=== PATIENT | male | born 1960 | race Caucasian/White ===

== ENCOUNTER → 2016-07-15 | Outpatient (CLI) | payer OTHER ==
[~2016-07-15] VITALS: Ht 177.8 cm; Wt 104.3 kg
[~2016-07-15] MED LIST: AMBIEN; AMBIEN 5 MG TABL5 M1 PO; AMLODIPINE BESYL5 MG PO; APAP650 PO; ASPIRIN325 PO; ATIVAN0.5 MG PO; BACTRIM DS TAB1 EACH PO; BP MED; CELEBREX 200 M200 MG PO; FIBER0.52 G1 PO; FLAGYL500 MG PO; FLEXERIL PO; LEXAPRO 10 MG T10 M2 PO; MOBIC15 MG PO; MULTIVITAMINS PO; NEXIUM PO; OMEPRAZOLE40 MG PO; PERCOCET 10-321 EACH PO; PREDNISONE 20 M20 MG PO; RAPAFLO8 MG PO; TIZANIDINE HCL4 MG PO; VITAMIN D-32000 UNIT PO; VITAMIN D35000 UNI1 PO; VITAMIN D400 UNI1; WELLBUTRIN 100100 M1 PO; ZOLOFT100 MG PO
--- NOTE | ~2016-07-15 | HPC ---
[facility] [place] [address] PAIN MANAGEMENT CONSULTATION Name: NANCY GOMEZ [id number] Admission: 07/15/16 Attend Phys: Gregorio Jackson DO Discharge: Date of : 64 Report #: [id number] THIS REPORT FOR: //name// CC: Jc Jackson HISTORY OF PRESENT ILLNESS: The patient is a pleasant 56-year-old gentleman, prior seen back in 2011 for symptomatic lumbar radiculopathy. He was seen 10/01/2015, given a single epidural injection at that time with 80-90% improvement of baseline pain. Pain has gradually begun to recur back, right buttock and leg. The patient notes pain is in both legs intermittently. It is sharp, tenderness with numbness and shooting paresthesia, currently rates the pain as 3-4/10, but notes it does significantly interfere with function as he is starting to walk and move. PHYSICAL EXAMINATION: GENERAL: Shows a 56-year-old gentleman, BMI is 33 kilograms per meter squared. VITAL SIGNS: Blood pressure is elevated today at 167/101, pulse 92, respirations of 16. MUSCULOSKELETAL: Rises from the chair using the armrest. Gait is tandem. Lumbar flexion is limited. Positive straight leg raise on the right. Slight decreased plantar flexion on the right side. MEDICATIONS: Medications were reconciled including antihypertensive medications, amlodipine. Does take lorazepam p.r.n for sleep, zolpidem as well, Lexapro for chronic anxiety, meloxicam 15 mg 1 a day and occasional Percocet 10/325 for pain. ASSESSMENT: Symptomatic lumbar radiculopathy in a gentleman with prior history of cervical decompressive laminectomy, ongoing radicular pain with paresthesia in the right leg. Positive straight leg raise on the right and excellent relief following 2 single epidural injections, one in 2011 and one in 09/2015. RECOMMENDATIONS: Repeat epidural injection under fluoroscopy today. Follow up p.r.n. PROCEDURE NOTE: Lumbar epidural injection under fluoroscopy. PROCEDURE NOTE: After both written and informed consent to include risk of spinal cord damage, increased pain, weakness and dural puncture, the patient was taken to the fluoroscopy suite, placed in the prone position. After sterile prep and drape, a skin wheal with lidocaine was raised. A 22-gauge epidural Tuohy needle was inserted in the midline at L4-L5 with good loss to resistance. Negative aspiration for cerebrospinal fluid or blood was noted. Then 1 mL of Omnipaque under biplanar fluoroscopy showed good spread within the epidural space. This was followed with 80 mg of triamcinolone plus 1 mL of 1.5% preservative-free Xylocaine, 0.5 mL Xylocaine was then injected to flush the [facility] [address] [place] [address] PAIN MANAGEMENT CONSULTATION Name: NANCY GOMEZ Room #: REG MARILU Sweeney#: [id number] Admission: 07/15/16 Attend Phys: Gregorio Jackson DO Discharge: Date of : 64 Report #: [id number] needle; it was removed. The patient was monitored for an appropriate period of time and discharged in good and stable condition. <ELECTRONICALLY SIGNED> By: Gregorio Jackson DO 07/20/16 1607 [id number] Gregorio Jackson DO /nt
[2016-07-15 12:45] VITALS: BP 167/101
== END ==
LOC: PAIN 07:18
DX: M54.16 Radiculopathy, lumbar region (principal); M96.1 Postlaminectomy syndrome, not elsewhere classified; I10 Essential (primary) hypertension; F17.210 Nicotine dependence, cigarettes, uncomplicated

== ENCOUNTER → 2016-12-27 | Outpatient (CLI) | payer OTHER | LOC: RAD 10:30 | DX: R09.89 Other specified symptoms and signs involving the circulatory and respiratory systems (principal); R05 Cough ==

== ENCOUNTER → 2018-05-28 | Outpatient (CLI) | payer OTHER | LOC: CAT 11:19 | DX: K76.0 Fatty (change of) liver, not elsewhere classified (principal); K76.9 Liver disease, unspecified; Z87.19 Personal history of other diseases of the digestive system ==

== ENCOUNTER → 2019-03-15 | Outpatient (CLI) | payer OTHER ==
[~2019-03-15] VITALS: Ht 177.8 cm; Wt 98.9 kg
[~2019-03-15] MED LIST changes: +TRAZODONE HCL50 MG PO
[2019-03-15 09:00] VITALS: BP 142/87
--- NOTE | 2019-03-15 09:14 | NUR ---
Pain Clinic Assessment: 1. History of Osteoarthritis: NONE History of Rheumatoid Arthritis: NONE 2. Height: 5 ft. 10 in. 177.8 cm. Weight: 218.0 lb. oz. 98.884 kg. Patient's BMI: 31.3 3. Vital Signs: BP: 142/87 Pulse: 75 Resp: 16 Temp: 02 Sat: 97 ECG Mon: 4. Pain Intensity: 3 5. Fall Risk: Dizziness: N Needs help standing or walking: N Fallen in the last 3 months: N Fall risk comments: 6. Patient on Blood Thinner: None 7. History of Hypertension: Y 8. Opioid Therapy greater than 6 weeks: Y Opiate Contract Signed: 9. Risk Assessment Tool Provided: Dr Medrano 10. Functional Assessment Tool: 11. Recreational Drug Use: Never Drug Type: Tobacco Use: Former Smoker Tobacco Type: Amount or Packs/day: How Many Years: Alcohol Use: Yes Frequency: Weekly Quant: 4
== END | disposition home or self-care (01) ==
LOC: PAIN 06:47 → MRI 06:47 → PAIN 08:25
DX: M54.16 Radiculopathy, lumbar region (principal); Z87.891 Personal history of nicotine dependence; Z88.0 Allergy status to penicillin; Z79.899 Other long term (current) drug therapy

== ENCOUNTER → 2019-05-03 | Outpatient (CLI) | payer OTHER ==
[~2019-05-03] VITALS: Ht 177.8 cm; Wt 99.8 kg
[2019-05-03 10:45] VITALS: BP 143/99
--- NOTE | 2019-05-03 10:46 | NUR ---
Pain Clinic Assessment: 1. History of Osteoarthritis: NONE History of Rheumatoid Arthritis: NONE 2. Height: 5 ft. 10 in. 177.8 cm. Weight: 220.0 lb. oz. 99.792 kg. Patient's BMI: 31.6 3. Vital Signs: BP: 143/99 Pulse: 78 Resp: 18 Temp: 02 Sat: 100 ECG Mon: 4. Pain Intensity: 3 NOW, 10 BY END OF DAY 5. Fall Risk: Dizziness: N Needs help standing or walking: N Fallen in the last 3 months: N Fall risk comments: 6. Patient on Blood Thinner: None 7. History of Hypertension: Y 8. Opioid Therapy greater than 6 weeks: Y Opiate Contract Signed: 9. Risk Assessment Tool Provided: Dr Medrano 10. Functional Assessment Tool: 11. Recreational Drug Use: Never Drug Type: Tobacco Use: Former Smoker Tobacco Type: Amount or Packs/day: How Many Years: Alcohol Use: Yes Frequency: Weekly Quant: RUM 3 TIMES WEEKLY.
--- NOTE | 2019-05-17 08:25 | HPC ---
[facility] [place] [address] PAIN MANAGEMENT CONSULTATION Name: YONYAVTARNANCY Room #: REG MARILU McphersonLauryn#: [id number] Admission: 05/03/19 Attend Phys: Shaw Espinoza MD Discharge: Date of : 64 Report #: [id number] THIS REPORT FOR: //name// CC: Shaw Medrano DATE OF SERVICE: 05/03/2019 PRIMARY CARE PHYSICIAN: Jc Medrano MD CHIEF COMPLAINT: Low back pain that goes down the right buttocks and into the thigh with numbness around the calf and big toe. HISTORY: The patient is a 59-year-old gentleman who has been seen in the pain clinic and noted worsening pain in the low back area. Pain radiates down to the right portion of his leg with numbness and tingling. He describes it as sharp, intermittent with tenderness, numbness and shooting pain. There is a significant ache. It starts out as a 3/10 in the morning and rise to the level of 10/10 by the end of the day. ALLERGIES: PENICILLIN. CURRENT MEDICATIONS: Rapaflo 8 mg, oxycodone 10 mg 1 p.o. t.i.d., amlodipine 5 mg, Ambien 5 mg, Lexapro 10 mg at bedtime, omeprazole 40 mg b.i.d., vitamin D3 5000 units, multivitamins. PAIN CLINIC ASSESSMENT/ PQRS: 1. History of osteoarthritis. The patient is not being treated for osteoarthritis. The patient is not being treated for rheumatoid arthritis. 2. Height 5 feet 10 inches, weight 220 pounds, BMI is 31.5. 3. Vital signs: Blood pressure 143/99, pulse 78, respiratory rate 18, room air saturation is 100%. 4. Pain intensity 3 now and 10 by the end of the day. 5. Fall risk. The patient has not fallen in the last 3 months. 6. Blood thinner. The patient is not on a blood thinning medication. 7. Hypertension. The patient is being treated for hypertension. 8. Opioids greater than 6 weeks. 9. Risk assessment tool, low for opioids, receives medications from Dr. Medrano. 10. Functional assessment tool. 11. Recreational drug use: The patient denies. 12. Tobacco: The patient is a former smoker. 13. Alcohol: The patient drinks rum 3 times per week. PHYSICAL EXAMINATION: GENERAL: The patient is a well-developed, well-nourished [place] [address] PAIN MANAGEMENT CONSULTATION Name: NANCY GOMEZ ISAIAH Room #: REG [facility]#: [id number] Admission: 05/03/19 Attend Phys: Shaw Espinoza MD Discharge: Date of : 64 Report #: [id number] his stated age. He is alert and oriented x 3. His affect is appropriate. Speech is fluent. HEENT: Normocephalic, atraumatic. Extraocular eye muscles intact. Sclerae nonicteric. Mucous membranes are moist. NECK: Without adenopathy or JVD. HEART: Regular rate. ABDOMEN: Nontender. EXTREMITIES: Upper extremity muscle strength judged to be 5/5 for the major muscle groups in the upper extremity. The patient has pain and discomfort in the lower portion of his back. Has positive straight leg raise on the right. The patient has pain that is radiating down the right leg in the L5-S1 dermatomal distribution. IMPRESSION: 1. Lumbar radicular pain in the L5-S1 dermatomal distribution. 2. Anemia secondary to vitamin D deficiency. 3. Hypertension. 4. Colon problems. 5. Stomach problems. 6. Lymphoma. 7. Emotional problems. 8. Radiation. 9. Ulcers. 10. Cancer. RECOMMENDATIONS: We discussed treatment options with the patient. Risks and benefits of an epidural steroid injection were again discussed. Possible complications of the procedure, which could include, but are not limited to infection, worsening of pain, nerve damage, bleeding, paralysis were discussed. The patient elects to proceed. PROCEDURE NOTE: The patient was taken to the procedure area. He was then assisted in getting on the examination table. A pillow was placed under his abdomen to bolster and improve positioning. Fluoroscopy using anterior, posterior as well as lateral viewing were implemented. A 25-gauge needle was then advanced into the area of the L5-S1 interspace. A total of 3 mL of 0.25% bupivacaine was infiltrated. A 17-gauge Tuohy with loss of resistance technique was then used to gain access to the epidural space. There was no CSF, heme or paresthesia. A total of 80 mg Depo-Medrol, 40 mg triamcinolone and 2 mL of 0.25% bupivacaine was injected. Total of 15 seconds was used. The patient remained in the pain clinic for an appropriate amount of time. He will follow up in the future as needed. [facility] [address] [place] [address] PAIN MANAGEMENT CONSULTATION Name: NANCY GOMEZ Room #: REG MARILU Sweeney#: [id number] Admission: 05/03/19 Attend Phys: Shaw Espinoza MD Discharge: Date of : 64 Report #: [id number] We would like to thank you for letting us participate in his care. We hope he continues to improve. <ELECTRONICALLY SIGNED> By: Shaw Espinoza MD 05/17/19 0825 1130 1605 Shaw Espinoza MD /PMT
== END | disposition home or self-care (01) ==
LOC: PAIN 07:07
DX: M54.16 Radiculopathy, lumbar region (principal); G89.29 Other chronic pain; I10 Essential (primary) hypertension; D64.9 Anemia, unspecified; Z87.891 Personal history of nicotine dependence; Z87.19 Personal history of other diseases of the digestive system; Z79.899 Other long term (current) drug therapy; Z88.0 Allergy status to penicillin; Z79.891 Long term (current) use of opiate analgesic

== ENCOUNTER → 2019-05-20 | Outpatient (CLI) | payer OTHER ==
[2019-05-20 10:26] LABS: ABSOLUTE NEUTROPHILS 5.7 thou/uL (1.4-8.2); BASOPHILS 0.9 % (0.0-2.0); EOSINOPHILS 2.4 % (0.0-3.0); HEMOGLOBIN 14.5 gm/dL (14.0-18.0); LYMPHOCYTES 31.2 % (24.0-44.0); MCH 34.2 pg (26.0-34.0); MCHC 34.5 g/dL (28.0-37.0); MCV 99.1 fL (80.0-100.0); MONOCYTES 11.4 % (1.0-8.0); PLATELET COUNT 254 thou/uL (150-400); POLYS 54.1 % (36.0-66.0); RBC 4.24 mil/uL (4.50-6.00); RDW 13.5 % (10.5-14.5); WBC 10.6 thou/uL (4.0-11.0)
[2019-05-20 10:39] LABS: ALBUMIN 3.9 g/dL (3.4-5.0); CALCIUM 9.9 mg/dL (8.5-10.1); POTASSIUM 3.9 mmol/L (3.5-5.1); TOTAL BILIRUBIN 0.4 mg/dL (<0.1-1.0); TOTAL PROTEIN 7.2 g/dL (6.4-8.2)
== END ==
LOC: CAT 09:47
PROVIDERS: Family Medicine
DX: K42.9 Umbilical hernia without obstruction or gangrene (principal); J98.4 Other disorders of lung; R91.8 Other nonspecific abnormal finding of lung field; J98.11 Atelectasis; K56.41 Fecal impaction; Z88.0 Allergy status to penicillin; Z90.49 Acquired absence of other specified parts of digestive tract

== ENCOUNTER → 2019-08-16 | Outpatient (CLI) | payer OTHER ==
[~2019-08-16] VITALS: Ht 177.8 cm; Wt 101.1 kg
[~2019-08-16] MED LIST changes: -AMLODIPINE BESYL5 MG PO; +FIBER TABS625 MG PO; -LEXAPRO 10 MG T10 M2 PO; +LEXAPRO20 MG PO; +MELOXICAM15 MG PO; +NEURONTIN 300300 M1 PO; +NORVASC5 M1 PO; +PROBIOTIC1 EAC7 PO; +STOOL SOFTENER100 M1 PO
[2019-08-16 08:38] VITALS: BP 120/82
--- NOTE | 2019-08-16 08:53 | NUR ---
Pain Clinic Assessment: 1. History of Osteoarthritis: NONE History of Rheumatoid Arthritis: NONE 2. Height: 5 ft. 10 in. 177.8 cm. Weight: 222.8 lb. oz. 101.062 kg. Patient's BMI: 32.0 3. Vital Signs: BP: 120/82 Pulse: 103 Resp: 16 Temp: 02 Sat: 96 ECG Mon: 4. Pain Intensity: 7 5. Fall Risk: Dizziness: N Needs help standing or walking: N Fallen in the last 3 months: N Fall risk comments: 6. Patient on Blood Thinner: None 7. History of Hypertension: Y 8. Opioid Therapy greater than 6 weeks: N Opiate Contract Signed: 9. Risk Assessment Tool Provided: Dr Medrano 10. Functional Assessment Tool: 11. Recreational Drug Use: Never Drug Type: Tobacco Use: Former Smoker Tobacco Type: Amount or Packs/day: How Many Years: Alcohol Use: Yes Frequency: Weekly Quant: 2-3 RUM DRINKS A WEEK
== END | disposition home or self-care (01) ==
LOC: PAIN 06:50
DX: M54.16 Radiculopathy, lumbar region (principal); G89.29 Other chronic pain; Z98.890 Other specified postprocedural states; Z79.899 Other long term (current) drug therapy; Z87.891 Personal history of nicotine dependence; Z88.0 Allergy status to penicillin

== ENCOUNTER → 2019-09-06 | Outpatient (CLI) | payer OTHER ==
[~2019-09-06] VITALS: Ht 177.8 cm; Wt 100.9 kg
--- NOTE | ~2019-09-06 | HPC ---
[facility] [place] [address] PAIN MANAGEMENT CONSULTATION Name: NANCY GOMEZN Room #: REG MARILU Sweeney#: [id number] Admission: 09/06/19 Attend Phys: Shaw Espinoza MD Discharge: Date of : 64 Report #: [id number] THIS REPORT FOR: cc: Jc Medrano MD, Rene P. MD Brown,Shaw Garcia MD ~ CC: Shaw Medrano DATE OF SERVICE: 09/06/2019 CHIEF COMPLAINT: Low back pain down in the right leg. HISTORY: The patient is a 59-year-old gentleman who has been followed in the pain clinic because of lumbar radiculopathy. He has undergone epidural steroid injections and found them beneficial. He returns today with an increase in pain and discomfort in the low back area. It is more problematic on the right side with radiation down into the leg with numbness and tingling. He feels that another epidural steroid injection would be helpful and has returned for that treatment course. He rates his pain as 1-2. It radiates down the lower portion of his back and into the right leg. Notes that the pain returned about a week ago. He did not want to wait until it became more problematic. It is exacerbated by walking and standing. Improves somewhat with sitting. No new changes in bowel or bladder function. ALLERGIES: PENICILLIN. CURRENT MEDICATIONS: Rapaflo 8 mg, oxycodone 10 mg 1 p.o. t.i.d., amlodipine 5 mg, Ambien 5 mg, Lexapro 10 mg at bedtime, omeprazole 40 mg b.i.d., vitamin D3 5000 units, vitamins multiple. PAIN CLINIC ASSESSMENT AND PQRS: 1. History of osteoarthritis. The patient is not being treated for osteoarthritis. He is not being treated for rheumatoid arthritis. 2. Height 5 feet 10 inches, weight 224 pounds, BMI is 34.9. 3. Vital Signs: Blood pressure 149/95, respiration 14, room air saturation 97%. 4. Pain intensity 1-2. 5. Fall risk. The patient has not fallen in the last 3 months. 6. Blood thinner. The patient is not on a blood thinning medication. 7. Hypertension. The patient is being treated for hypertension. 8. Opioids greater than 6 weeks. The patient is not on her regular opioid regimen. 9. Recreational drug use: The patient denies. 10. Tobacco: The patient is a former smoker. 11. Alcohol: The patient [place] [address] PAIN MANAGEMENT CONSULTATION Name: NANCY GOMEZ ISAIAH Room #: REG [facility]#: [id number] Admission: 09/06/19 Attend Phys: Shaw Espinoza MD Discharge: Date of : 64 Report #: [id number] PHYSICAL EXAMINATION: GENERAL: The patient is a well-developed, well-nourished white male. Appears his stated age. He is alert and oriented x 3. His affect is appropriate. Speech is fluent. HEENT: Normocephalic, atraumatic. Extraocular eye muscles intact. Sclerae nonicteric. Mucous membranes are moist. NECK: Without adenopathy or JVD. HEART: Regular rate. CHEST: Clear. ABDOMEN: Nontender. MUSCULOSKELETAL: Upper extremity muscle strength judged to be 5/5 for the major muscle groups in the upper extremity. The patient has some pain and discomfort in lower portion of his back. Straight leg raise positive on the right. Has noticed some pain, which he describes as a type pain, which radiates down into the low back area and into his leg. IMPRESSION: 1. Lumbar radicular pain in the L5-S1 dermatomal distribution in the past, now more in the L4 distribution on the right. 2. Anemia secondary to vitamin D deficiency. 3. Hypertension. 4. Colon problems. 5. Stomach problems. 6. Lymphoma history. 7. Emotional problems. 8. Radiation history. 9. Ulcers. 10. Cancer. RECOMMENDATIONS: We discussed treatment options with the patient. Risks and benefits of an epidural steroid injection in the L4-L5 dermatomal distribution was discussed. Possible complications of the procedure, which could include, but are not limited to infection, increased muscle soreness, bleeding, headache, nerve damage and the patient elects to proceed. PROCEDURE NOTE: The patient was taken to the procedure area. He was then assisted in getting on the examination table. All questions have been sought and answered. His back was sterilely prepped with a Betadine solution at the L4-L5 interspace. Fluoroscopy using anterior, posterior as well as lateral viewing were implemented. A 25-gauge needle was then used to anesthetize the area of L4-L5. A 17-gauge Tuohy with loss of resistance technique was then used and directed toward the right L4-L5 area. A total of 80 mg Depo-Medrol, 40 mg triamcinolone and 2 mL of 0.25% bupivacaine was injected. The patient tolerated the procedure well. There were no complications. [facility] [address] [place] [address] PAIN MANAGEMENT CONSULTATION Name: NANCY GOMEZ Room #: REG MARILU Mcpherson.#: [id number] Admission: 09/06/19 Attend Phys: Shaw Espinoza MD Discharge: Date of : 64 Report #: [id number] We would like to thank you for letting us participate in his care. We hope he continues to improve. By: 0901 1700 Shaw Espinoza MD /ELSY
[2019-09-06 10:11] VITALS: BP 149/98
--- NOTE | 2019-09-06 10:19 | NUR ---
Pain Clinic Assessment: 1. History of Osteoarthritis: NONE History of Rheumatoid Arthritis: NONE 2. Height: 5 ft. 10 in. 177.8 cm. Weight: 222.4 lb. oz. 100.880 kg. Patient's BMI: 31.9 3. Vital Signs: BP: 149/98 Pulse: 95 Resp: 14 Temp: 02 Sat: 97 ECG Mon: 4. Pain Intensity: 1-2 5. Fall Risk: Dizziness: N Needs help standing or walking: N Fallen in the last 3 months: N Fall risk comments: 6. Patient on Blood Thinner: None 7. History of Hypertension: Y 8. Opioid Therapy greater than 6 weeks: N Opiate Contract Signed: 9. Risk Assessment Tool Provided: Dr Medrano 10. Functional Assessment Tool: 11. Recreational Drug Use: Never Drug Type: Tobacco Use: Former Smoker Tobacco Type: Amount or Packs/day: How Many Years: Alcohol Use: Yes Frequency: Quant:
== END | disposition home or self-care (01) ==
LOC: PAIN 06:51
DX: M54.16 Radiculopathy, lumbar region (principal); G89.29 Other chronic pain; I10 Essential (primary) hypertension; Z98.890 Other specified postprocedural states; Z79.899 Other long term (current) drug therapy; Z88.0 Allergy status to penicillin; Z87.19 Personal history of other diseases of the digestive system; Z88.8 Allergy status to other drugs, medicaments and biological substances; Z79.891 Long term (current) use of opiate analgesic

== ENCOUNTER → 2019-11-06 | Outpatient (CLI) | payer OTHER ==
[~2019-11-06] VITALS: Ht 177.8 cm; Wt 102.0 kg
[~2019-11-06] MED LIST changes: +NEURONTIN 400400 M1 PO
[2019-11-06 13:36] VITALS: BP 135/93
--- NOTE | 2019-11-06 13:57 | NUR ---
Pain Clinic Assessment: 1. History of Osteoarthritis: NONE History of Rheumatoid Arthritis: NONE 2. Height: 5 ft. 10 in. 177.8 cm. Weight: 224.8 lb. oz. 101.969 kg. Patient's BMI: 32.3 3. Vital Signs: BP: 135/93 Pulse: 103 Resp: 16 Temp: 02 Sat: 96 ECG Mon: 4. Pain Intensity: 2 NOW, 8 THROUGHOUT DAY 5. Fall Risk: Dizziness: N Needs help standing or walking: N Fallen in the last 3 months: N Fall risk comments: 6. Patient on Blood Thinner: None 7. History of Hypertension: Y 8. Opioid Therapy greater than 6 weeks: N Opiate Contract Signed: 9. Risk Assessment Tool Provided: Dr Medrano 10. Functional Assessment Tool: 11. Recreational Drug Use: Never Drug Type: Tobacco Use: Former Smoker Tobacco Type: Cigarettes Amount or Packs/day: 1 How Many Years: 40 Alcohol Use: Yes Frequency: Weekly Quant: LIQUOR A FEW TIMES WEEKLY
--- NOTE | 2019-11-13 07:58 | HPC ---
[facility] [place] [address] PAIN MANAGEMENT CONSULTATION Name: NANCY GOMEZ ISAIAH Room #: REG MARILU Mcpherson.#: [id number] Admission: 11/06/19 Attend Phys: Shaw Espinoza MD Discharge: Date of : 64 Report #: [id number] THIS REPORT FOR: cc: Jc Medrano MD, Rene P. MD Brown,Shaw Garcia MD ~ CC: Shaw Medrano DATE OF SERVICE: 11/12/2019 CHIEF COMPLAINT: Worsening of low back pain with pain down the right leg. HISTORY: The patient is a 59-year-old gentleman who has been seen in the pain clinic because of lumbar radiculopathy. He has noticed a significant increase in pain and discomfort in his low back. Continues to radiate down his leg with numbness and tingling. He notes that the pain causes him to walk in a bent over fashion. He has been noticing that his leg has given way. Rates his pain as a 2 at this point, but continues to increase throughout the day to the level of 8. Feels that epidural steroid injection would be beneficial at this point. ALLERGIES: PENICILLIN. CURRENT MEDICATIONS: Rapaflo 8 mg, oxycodone 10 mg 1 p.o. t.i.d., amlodipine 5 mg, Ambien 5 mg, Lexapro 10 mg at bedtime, omeprazole 40 mg b.i.d., vitamin D3 5000 units, and multivitamins. PAIN CLINIC ASSESSMENT AND PQRS: 1. History of osteoarthritis. The patient is not being treated for osteoarthritis. He is not being treated for rheumatoid arthritis. 2. Height 5 feet 10 inch, weight 224 pounds, BMI is 32. 3. Vital Signs: Blood pressure 135/93, pulse 103, respiratory rate 16, room air saturation is 96%. 4. Pain intensity 2/10 in the morning and can rise to a level 8/10 by evening. 5. Fall risk. The patient has not fallen, but has felt his leg gave way. 6. Blood thinner. The patient is not on a blood thinning medication. 7. Hypertension. The patient is being treated for hypertension. 8. Opioid therapy greater than 6 weeks. 9. He receives his medication from the pain clinic. 10. Risk assessment tool reviewed. 11. Recreational drug use. The patient denies. 12. Tobacco: The patient smokes cigarettes 1 pack a day for 40 years. 13. Alcohol: The patient drinks alcoholic beverages a few times weekly. PHYSICAL EXAMINATION: GENERAL: The patient is a well-developed, well-nourished white male. Appears [address] [address] PAIN MANAGEMENT CONSULTATION Name: NANCY GOMEZ Room #: REG [facility] M.Nel.#: [id number] Admission: 11/06/19 Attend Phys: Shaw Espinoza MD Discharge: Date of : 64 Report #: [id number] his stated age. He is alert and oriented x 3. His affect is appropriate. Speech is fluent. HEENT: Normocephalic, atraumatic. Extraocular eye muscles intact. Sclerae nonicteric. Mucous membranes are moist. NECK: Without adenopathy or JVD. HEART: Regular rate. CHEST: Clear. ABDOMEN: Nontender. MUSCULOSKELETAL: Upper extremity muscle strength judged to be 5/5 for the major muscle groups in the upper extremity. The patient has pain and discomfort in the lower portion of his back. Has a positive straight leg raise on the right. Has pain in the L4-L5 dermatomal distribution today. IMPRESSION: 1. Lumbar radiculopathy involving the L4-L5 distribution. 2. Anemia secondary to vitamin D deficiency. 3. Hypertension. 4. Colon problems. 5. Stomach problems. 6. Lymphoma history. 7. Emotional problems. 8. Radiation history. 9. Ulcers. 10. Cancer. RECOMMENDATIONS: We discussed treatment options with the patient. We explained to the patient the possible complications of an epidural steroid injection. They could include but are not limited to infection, worsening pain, no improvement in pain, infection, nerve damage, spinal headache. We also counseled the patient thoroughly regarding the risks and benefits of an epidural steroid injection in the throes of this COVID-19 pandemic. We explained that this could decrease his level of immunity. Steroid use can suppress once immunity. The patient states that he is staying in home. He is observing social isolation. He feels that his pain is so problematic at this point. He feels that he would like to proceed with the injection. PROCEDURE NOTE: The patient was taken to the procedure area. He was then assisted in getting on the examination table. His back was sterilely prepped with a Betadine solution. A 0.25% bupivacaine was infiltrated at the L4-L5 interspace. A 17-gauge Tuohy with loss of resistance technique was used to gain access to the epidural space. There was no CSF, heme or paresthesia. Total of 80 mg Depo-Medrol, 40 mg triamcinolone and 2 mL of 0.25% bupivacaine was injected. The patient tolerated the procedure well. There were no complications. He remained in the pain clinic for an appropriate amount of time. His pain decreased to 0 at the time of discharge. He will follow up in the future as needed. He will maintain isolation to help protect himself from [address] [place] [address] PAIN MANAGEMENT CONSULTATION Name: NANCY GOMEZ Room #: REG Brittney MCade.#: [id number] Admission: 11/06/19 Attend Phys: Shaw Espinoza MD Discharge: Date of : 64 Report #: [id number] the COVID-19. The patient will also continue with gabapentin 400 mg 1 p.o. t.i.d. We would like to thank you for letting us participate in his care. We hope he continues to improve. <ELECTRONICALLY SIGNED> By: Shaw Espinoza MD 11/13/19 0758 2212 0525 Shaw Espinoza MD /PMT
== END | disposition home or self-care (01) ==
LOC: PAIN 09:05
DX: M54.16 Radiculopathy, lumbar region (principal); G89.29 Other chronic pain; D64.9 Anemia, unspecified; I10 Essential (primary) hypertension; Z98.890 Other specified postprocedural states; Z88.8 Allergy status to other drugs, medicaments and biological substances; Z79.899 Other long term (current) drug therapy